=== PATIENT | male | born 1950 ===

== ENCOUNTER 2022-07-31 10:57 | Outpatient (REF) | payer OTHER, SELFPAY ==
[2022-07-31 11:05] LABS: MANUAL DIFF FLAG NO
[2022-07-31 11:17] LABS: Basophils Absolute Auto 0.1 X10*3/uL (0.0-0.2); Basophils Percent Auto 0.8 % (0-2); Eosinophils Absolute Auto 0.2 X10*3/uL (0.0-0.4); Eosinophils Percent Auto 1.8 % (0-4); Hematocrit 39.9 % (42.0-52.0); Hemoglobin 13.5 g/dl (14.0-18.0); Imm Gran Abs Auto 0.03 X10*3/uL (0.00-0.03); Imm Gran Pct Auto 0.4 % (0.0-0.4); Lymphocytes Absolute Auto 2.3 X10*3/uL (1.2-4.9); Mean Corpuscular HGB Conc 33.8 g/dl (31.0-36.0); Mean Corpuscular Hemoglobin 32.7 pg (27.0-33.0); Mean Corpuscular Volume 96.6 fL (80.0-98.0); Mean Platelet Volume 9.7 fL (9.4-12.4); Monocytes Absolute Auto 0.7 X10*3/uL (0.1-1.2); Monocytes Percent Auto 8.9 % (2-11); Neutrophils Absolute Auto 5.1 x10*3/uL (2.0-8.3); Neutrophils Percent Auto 61.1 % (45-73); Platelet Count 201 X10*3/uL (160-400); Red Blood Count 4.13 X10*6/uL (4.60-5.80); Red Cell Distribution Width 13.2 % (11.0-16.0); White Blood Count 8.3 X10*3/uL (4.8-10.8)
[2022-07-31 11:22] LABS: Appearance Urine Clear; Color Urine Yellow; Glucose Urine UA Negative (Negative); Leukocyte Esterase Urine Negative (Negative); Nitrite Urine Negative (Negative); Urine Blood Negative (Negative); Urine Ketones Negative (Negative); Urine Protein Negative (Neg-Trace)
[2022-07-31 11:24] LABS: Bacteria Urine None Seen (None Seen); Hyaline Casts Urine 0-2 /LPF (0-2); RBC Urine 0-2 /HPF (0-2); Squamous Epithelial Cell Urine 0-2 /HPF (0-2); WBC Urine 0-5 /HPF (0-5)
[2022-07-31 11:32] LABS: Alanine Aminotransferase 34 U/L (0-40); Albumin Level 4.2 g/dL (3.5-5.0); Alkaline Phosphatase 68 U/L (39-117); Anion Gap 16 (12-20); Aspartate Amino Transferase 31 U/L (5-37); Bilirubin Total 0.7 mg/dL (0.0-1.0); Blood Urea Nitrogen 19 mg/dL (9-16); Calcium 9.4 mg/dL (8.4-10.2); Carbon Dioxide 25 mmol/L (22-29); Chloride 100 mmol/L (96-108); Cholesterol 159 mg/dL; Estimated Glomerular Filt Rate > 60; Glucose Fasting 100 mg/dL (60-99); HDL Cholesterol 65 mg/dL; LDL Cholesterol Calculated 69 mg/dl; Sodium 137 mmol/L (135-145); Total Protein 7.3 g/dL (6.5-8.0); Triglycerides 128 mg/dL
[2022-07-31 11:52] LABS: PSA,Total (Free>4and<10) 2.45 ng/mL (0.00-4.00)
== END 2022-07-31 10:58 | disposition home or self-care (01) ==
LOC: HO.LNP 10:57
PROVIDERS: Visit Provider Internal Medicine
DX: Z00.00 Encounter for general adult medical examination without abnormal findings (principal); Z12.5 Encounter for screening for malignant neoplasm of prostate; E78.00 Pure hypercholesterolemia, unspecified; I10 Essential (primary) hypertension
CPT/HCPCS: 80053; 80061; 81001; 84153; 85025

== ENCOUNTER 2022-11-11 12:20 | Outpatient (REF) | payer OTHER, SELFPAY ==
[2022-11-11 12:22] LABS: MANUAL DIFF FLAG NO
[2022-11-11 13:00] LABS: Basophils Absolute Auto 0.1 X10*3/uL (0.0-0.2); Basophils Percent Auto 0.7 % (0-2); Eosinophils Absolute Auto 0.2 X10*3/uL (0.0-0.4); Eosinophils Percent Auto 2.1 % (0-4); Hematocrit 40.7 % (42.0-52.0); Hemoglobin 14.2 g/dl (14.0-18.0); Imm Gran Abs Auto 0.02 X10*3/uL (0.00-0.03); Imm Gran Pct Auto 0.3 % (0.0-0.4); Lymphocytes Absolute Auto 2.1 X10*3/uL (1.2-4.9); Lymphocytes Percent Auto 28.8 % (20-40); Mean Corpuscular HGB Conc 34.9 g/dl (31.0-36.0); Mean Corpuscular Hemoglobin 33.3 pg (27.0-33.0); Mean Corpuscular Volume 95.5 fL (80.0-98.0); Mean Platelet Volume 9.8 fL (9.4-12.4); Monocytes Absolute Auto 0.9 X10*3/uL (0.1-1.2); Monocytes Percent Auto 11.9 % (2-11); Neutrophils Absolute Auto 4.1 x10*3/uL (2.0-8.3); Neutrophils Percent Auto 56.2 % (45-73); Platelet Count 179 X10*3/uL (160-400); Red Blood Count 4.26 X10*6/uL (4.60-5.80); White Blood Count 7.2 X10*3/uL (4.8-10.8)
[2022-11-11 13:50] LABS: Iron 111 mcg/dL (45-160); Percent Iron Saturation 40 % (15-50); Total Iron Binding Capacity 276 mcg/dL (228-428); Unsaturated Iron Binding 165 ug/dL
== END 2022-11-11 12:21 | disposition home or self-care (01) ==
LOC: HO.LNP 12:20
PROVIDERS: Visit Provider Internal Medicine
DX: D64.9 Anemia, unspecified (principal)
CPT/HCPCS: 83540; 85025

== ENCOUNTER 2023-01-30 10:59 | Outpatient (REF) | payer OTHER, SELFPAY ==
[2023-01-30 11:49] LABS: Alanine Aminotransferase 62 U/L (0-40); Albumin Level 3.8 g/dL (3.5-5.0); Alkaline Phosphatase 72 U/L (39-117); Aspartate Amino Transferase 64 U/L (5-37); Bilirubin Direct 0.2 mg/dL (0.0-0.5); Bilirubin Total 0.6 mg/dL (0.0-1.0); Cholesterol 162 mg/dL; HDL Cholesterol 75 mg/dL; LDL Cholesterol Calculated 68 mg/dl; Total Protein 6.9 g/dL (6.5-8.0); Triglycerides 97 mg/dL
[2023-01-30 14:39] LABS: Reflex LDLD? No
== END 2023-01-30 11:00 | disposition home or self-care (01) ==
LOC: HO.LNP 10:59
PROVIDERS: PCP Internal Medicine; Visit Provider Internal Medicine
DX: E78.00 Pure hypercholesterolemia, unspecified (principal)
CPT/HCPCS: 80061; 80076

== ENCOUNTER 2023-04-07 10:35 | Outpatient (REF) | payer OTHER, SELFPAY ==
[2023-04-07 11:16] LABS: Alanine Aminotransferase 29 U/L (0-40); Alkaline Phosphatase 63 U/L (39-117); Aspartate Amino Transferase 29 U/L (5-37); Bilirubin Direct 0.3 mg/dL (0.0-0.5); Total Protein 7.4 g/dL (6.5-8.0)
== END 2023-04-07 10:36 | disposition home or self-care (01) ==
LOC: HO.LNP 10:35
PROVIDERS: Visit Provider Internal Medicine
DX: R79.89 Other specified abnormal findings of blood chemistry (principal)
CPT/HCPCS: 80076

== ENCOUNTER 2023-08-27 10:34 | Outpatient (REF) | payer OTHER, SELFPAY ==
[2023-08-27 10:36] LABS: MANUAL DIFF FLAG NO
[2023-08-27 10:43] LABS: Basophils Absolute Auto 0.1 X10*3/uL (0.0-0.2); Basophils Percent Auto 0.7 % (0-2); Eosinophils Absolute Auto 0.1 X10*3/uL (0.0-0.4); Hematocrit 44.5 % (42.0-52.0); Imm Gran Abs Auto 0.05 X10*3/uL (0.00-0.03); Imm Gran Pct Auto 0.6 % (0.0-0.4); Lymphocytes Absolute Auto 2.5 X10*3/uL (1.2-4.9); Mean Corpuscular HGB Conc 33.7 g/dl (31.0-36.0); Mean Corpuscular Hemoglobin 33.3 pg (27.0-33.0); Mean Corpuscular Volume 98.9 fL (80.0-98.0); Mean Platelet Volume 9.8 fL (9.4-12.4); Monocytes Absolute Auto 0.9 X10*3/uL (0.1-1.2); Monocytes Percent Auto 10.7 % (2-11); Neutrophils Absolute Auto 4.7 x10*3/uL (2.0-8.3); Platelet Count 194 X10*3/uL (160-400); White Blood Count 8.3 X10*3/uL (4.8-10.8)
[2023-08-27 10:49] LABS: Appearance Urine Clear; Color Urine Yellow; Glucose Urine UA Negative (Negative); Leukocyte Esterase Urine Negative (Negative); Nitrite Urine Negative (Negative); Specific Gravity - Urine 1.015 (1.005-1.025); Urine Blood Negative (Negative); Urine Ketones Negative (Negative); Urine Protein Trace mg/dL (Neg-Trace)
[2023-08-27 10:54] LABS: Bacteria Urine None Seen (None Seen); Hyaline Casts Urine 0-2 /LPF (0-2); Squamous Epithelial Cell Urine 0-2 /HPF (0-2); WBC Urine 0-5 /HPF (0-5)
[2023-08-27 10:56] LABS: Alanine Aminotransferase 65 U/L (0-40); Albumin Level 4.1 g/dL (3.5-5.0); Alkaline Phosphatase 57 U/L (39-117); Anion Gap 11 (12-20); Aspartate Amino Transferase 38 U/L (5-37); Bilirubin Total 0.8 mg/dL (0.0-1.0); Blood Urea Nitrogen 25 mg/dL (9-16); Calcium 9.7 mg/dL (8.4-10.2); Carbon Dioxide 30 mmol/L (22-29); Chloride 101 mmol/L (96-108); Cholesterol 230 mg/dL (<200); Estimated Glomerular Filt Rate 57; Glucose Fasting 93 mg/dL (60-99); HDL Cholesterol 79 mg/dL (>40); LDL Cholesterol Calculated 129 mg/dL (<100); Potassium 4.3 mmol/L (3.3-5.1); Sodium 138 mmol/L (135-145); Total Protein 6.6 g/dL (6.5-8.0); Triglycerides 112 mg/dL (<150)
[2023-08-28 12:35] LABS: Free Prostate Spec Ag 0.7 ng/mL; Percent Free Prostate Spec Ag 17 % (calc) (>25); Prostate Specific Ag Total 4.2 ng/mL (< OR = 4.0)
== END 2023-08-27 10:35 | disposition home or self-care (01) ==
LOC: HO.LNP 10:34
PROVIDERS: PCP Internal Medicine; Visit Provider Internal Medicine
DX: Z00.00 Encounter for general adult medical examination without abnormal findings (principal); Z12.5 Encounter for screening for malignant neoplasm of prostate; I10 Essential (primary) hypertension
CPT/HCPCS: 80053; 80061; 81001; 84153; 84154; 85025

== ENCOUNTER 2023-10-20 15:27 | Outpatient (REF) | payer OTHER, SELFPAY ==
[2023-10-20 15:45] LABS: Appearance Urine Clear; Color Urine Yellow; Glucose Urine UA Negative (Negative); Leukocyte Esterase Urine Negative (Negative); Nitrite Urine Negative (Negative); PH 7.5 (5.0-9.0); Specific Gravity - Urine 1.015 (1.005-1.025); Urine Blood Negative (Negative); Urine Ketones Negative (Negative); Urine Protein Trace mg/dL (Neg-Trace)
[2023-10-20 16:39] LABS: Bacteria Urine None Seen (None Seen); Hyaline Casts Urine 0-2 /LPF (0-2); RBC Urine 0-2 /HPF (0-2); Squamous Epithelial Cell Urine 0-2 /HPF (0-2); WBC Urine 0-5 /HPF (0-5)
== END 2023-10-20 15:28 | disposition home or self-care (01) ==
LOC: HO.LNP 15:27
PROVIDERS: Visit Provider Internal Medicine
DX: R31.29 Other microscopic hematuria (principal)
CPT/HCPCS: 81001

== ENCOUNTER 2024-05-10 11:28 | Outpatient (REF) | payer OTHER, SELFPAY ==
[2024-05-10 12:42] LABS: Alanine Aminotransferase 43 U/L (0-40); Albumin Level 4.2 g/dL (3.5-5.0); Alkaline Phosphatase 63 U/L (39-117); Aspartate Amino Transferase 39 U/L (5-37); Bilirubin Direct 0.3 mg/dL (0.0-0.5); Bilirubin Total 0.7 mg/dL (0.0-1.0); Cholesterol 140 mg/dL (<200); HDL Cholesterol 64 mg/dL (>40); LDL Cholesterol Calculated 49 mg/dL (<100); Total Protein 7.8 g/dL (6.5-8.0); Triglycerides 135 mg/dL (<150)
[2024-05-10 12:47] LABS: PSA,Total (Free>4and<10) 5.34 ng/mL (0.00-4.00)
[2024-05-10 13:03] LABS: Reflex LDLD? No
[2024-05-13 08:38] LABS: Percent Free Prostate Spec Ag 20 % (calc) (>25)
== END 2024-05-10 11:29 | disposition home or self-care (01) ==
LOC: HO.LNP 11:28
PROVIDERS: Visit Provider Internal Medicine
DX: E78.00 Pure hypercholesterolemia, unspecified (principal); R97.20 Elevated prostate specific antigen [PSA]; Z12.5 Encounter for screening for malignant neoplasm of prostate
CPT/HCPCS: 80061; 80076; 84153; 84154

== ENCOUNTER 2024-09-13 14:35 | Outpatient (AMB) | payer MEDICARE, OTHER, SELFPAY ==
[2024-09-13 15:18] VITALS: BP 116/78; PULSE 68; TEMP 36.5; O2SAT 96
--- NOTE | 2024-09-13 15:18 | AM.OFFWIN_ITS ---
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 Reporting symptoms of sinus congestion, sore throat and difficulty swallowing. Low-grade fever. No family member is sick. No recent travel. Patient reports symptoms of malaise and fatigue. PFSH Social History Patient Tobacco Use Status: Never used Tobacco Physical Exam Vital Signs: Last Vital Signs Temp 97.7 F 09/13/24 15:18 Pulse 68 09/13/24 15:18 BP 116/78 09/13/24 15:18 Pulse Ox 96 09/13/24 15:18 Oxygen Delivery Method Room Air 09/13/24 15:18 Const General: cooperative and healthy appearing Nutritional Appearance: well nourished Orientation/consciousness: patient oriented x3 Limitations: no limitations HEENT Head: Yes normal to inspection Eyes General: appearance normal, both eyes and all related structures Neck Neck: Yes normal visual inspection Chest Chest palpation & inspection: normal palpation of entire chest wall Resp Effort & Inspection: normal respiratory effort Neuro General: patient oriented x3 Assessment & Plan Assessment & Plan (1) Upper respiratory tract infection: Code(s): J06.9 - Acute upper respiratory infection, unspecified Plan: Antibiotics ordered. Increase fluid intake. Tylenol for aches and pains. If symptoms worsen, follow-up here for a recheck. Coding Level of Care Code Est Pt Level 3 (52030) Diagnoses Upper respiratory tract infection J06.9
== END 2024-09-13 15:54 | disposition home or self-care (01) ==
PROVIDERS: PCP Internal Medicine; Visit Provider Internal Medicine
DX: J06.9 Acute upper respiratory infection, unspecified (principal)

== ENCOUNTER → 2024-09-13 14:35 | Outpatient (BNVA) | payer MEDICARE, OTHER, SELFPAY | PROVIDERS: PCP Internal Medicine; Visit Provider Internal Medicine | DX: J06.9 Acute upper respiratory infection, unspecified (principal) | CPT/HCPCS: 99212 ==

== ENCOUNTER 2024-10-18 07:30 | Outpatient (REF) | payer MEDICARE, OTHER, SELFPAY ==
[2024-10-18 10:41] LABS: MANUAL DIFF FLAG NO
[2024-10-18 11:02] LABS: Basophils Absolute Auto 0.1 X10*3/uL (0.0-0.2); Basophils Percent Auto 0.9 % (0-2); Eosinophils Absolute Auto 0.1 X10*3/uL (0.0-0.4); Eosinophils Percent Auto 1.4 % (0-4); Hematocrit 38.8 % (42.0-52.0); Hemoglobin 12.9 g/dl (14.0-18.0); Imm Gran Abs Auto 0.05 X10*3/uL (0.00-0.03); Imm Gran Pct Auto 0.5 % (0.0-0.4); Lymphocytes Absolute Auto 1.6 X10*3/uL (1.2-4.9); Lymphocytes Percent Auto 16.7 % (20-40); Mean Corpuscular HGB Conc 33.2 g/dl (31.0-36.0); Mean Corpuscular Hemoglobin 32.2 pg (27.0-33.0); Mean Corpuscular Volume 96.8 fL (80.0-98.0); Mean Platelet Volume 9.6 fL (9.4-12.4); Monocytes Absolute Auto 0.9 X10*3/uL (0.1-1.2); Monocytes Percent Auto 9.1 % (2-11); Neutrophils Absolute Auto 6.9 x10*3/uL (2.0-8.3); Neutrophils Percent Auto 71.4 % (45-73); Platelet Count 322 X10*3/uL (160-400); Red Blood Count 4.01 X10*6/uL (4.60-5.80); Red Cell Distribution Width 12.3 % (11.0-16.0); White Blood Count 9.6 X10*3/uL (4.8-10.8)
[2024-10-18 11:17] LABS: Appearance Urine Clear; Color Urine Yellow; Glucose Urine UA Negative (Negative); Leukocyte Esterase Urine Trace (Negative); Nitrite Urine Negative (Negative); PH 7.5 (5.0-9.0); UMIC TRIGGER UACC YES; Urine Blood Negative (Negative); Urine Ketones Negative (Negative); Urine Protein Negative (Neg-Trace)
[2024-10-18 11:21] LABS: Bacteria Urine None Seen (None Seen); Hyaline Casts Urine 0-2 /LPF (0-2); RBC Urine 0-2 /HPF (0-2); Squamous Epithelial Cell Urine 0-2 /HPF (0-2); WBC Urine 0-5 /HPF (0-5)
[2024-10-18 11:38] LABS: Alanine Aminotransferase 26 U/L (0-40); Albumin Level 3.8 g/dL (3.5-5.0); Alkaline Phosphatase 62 U/L (39-117); Anion Gap 13 (12-20); Aspartate Amino Transferase 39 U/L (5-37); Bilirubin Total 0.5 mg/dL (0.0-1.0); Blood Urea Nitrogen 15 mg/dL (9-16); Calcium 9.5 mg/dL (8.4-10.2); Carbon Dioxide 26 mmol/L (22-29); Chloride 102 mmol/L (96-108); Cholesterol 118 mg/dL (<200); Estimated Glomerular Filt Rate > 60; Glucose Fasting 97 mg/dL (60-99); HDL Cholesterol 54 mg/dL (>40); LDL Cholesterol Calculated 47 mg/dL (<100); PSA,Total (Free>4and<10) 6.76 ng/mL (0.00-4.00); Potassium 4.4 mmol/L (3.3-5.1); Sodium 137 mmol/L (135-145); Total Protein 7.8 g/dL (6.5-8.0); Triglycerides 85 mg/dL (<150)
--- OUTSIDE RECORDS SUMMARY | 2024-10-18 12:01 | XMS_ITS | Clinical Summary ---
Author Organization [address] [place] [address] Address [address] [place] [address] Phone Care Team Providers Care Butadiene Compressor Operator Name Role Phone Easton Barclay MD Primary Care Provider Unav ailable Allergies No known active allergies Medications Medication Sig Dispensed Refills Start Date End Date Status vitamin B complex (VITAMINS B COMPLEX ORAL) Take by mouth. Active apixaban (Eliquis) 5 mg tablet Take 1 tablet (5 mg total) by mouth 2 (two) times a day. 05/13/2024 Active amLODIPine (NORVASC) 10 mg tablet Take 1 tablet (10 mg total) by mouth 1 (one) time each day. Active folic acid (FOLVITE) 1 mg tablet Take 1 tablet (1,000 mcg total) by mouth 1 (one) time each day. Active torsemide (DEMADEX) 10 mg tablet Take 1 tablet (10 mg total) by mouth. Active CALCIUM CITRATE ORAL Take by mouth. Active multivitamin (MULTIPLE VITAMINS ORAL) Take by mouth. Active cholecalciferol, vitamin D3, (CHOLECALCIFEROL, VIT D3,,BULK, MISC) Take 4,000 Units by mouth. Active ezetimibe (ZETIA) 10 mg tablet Take 1 tablet (10 mg total) by mouth. Active metoprolol succinate (TOPROL-XL) 200 mg 24 hr tablet Take 1 tablet (200 mg total) by mouth. Active omeprazole OTC (PriLOSEC OTC) 20 mg EC tablet Take 1 tablet (20 mg total) by mouth. Active rosuvastatin (CRESTOR) 10 mg tablet Take 1 tablet (10 mg total) by mouth. Active valsartan (DIOVAN) 320 mg tablet Take 1 tablet (320 mg total) by mouth. Active Active Problems Problem Noted Date Diagnosed Date Paroxysmal atrial fibrillation 06/04/2023 Overview (07/12/2024): Last Assessment & Plan: Patient denies perceived recurrence of arrhythmias, palpitations, syncope, presyncope, fatigue, or lightheadedness. Patient not historically put on anticoagulation given low A-fib burden on his device, alcohol use, episodes of syncope, and falls. - Repeat ECHO to assess for structural abnormalities or valvular disease - Will continue to monitor device checks for arrhythmias Venous insufficiency 02/17/2022 S/p TAVR (transcatheter aort ic valve replacement), bioprosthetic 02/17/2022 Overview (07/12/2024): Last Assessment & Plan: - discussed cardiac rehab as an option to improve physical activity capacity and the benefits of the program on his heart function. Patient is open to this and will look into it. 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 - Continue metoprolol and amlodipine - Encouraged to follow low-salt low-fat diet, make purposeful strides towards weight loss, and engage in routine aerobic exercise as tolerated. Hyperlipidemia 01/22/2021 Aortic stenosis 01/22/2021 Overview (07/12/2024): moderate to severe Encounters Date Type Department Care Team Description 10/04/2024 6:30 PM EST Ancillary Procedure [facility] - [address] [place] [address] 08/09/2024 10:05 AM EST Ancillary Procedure [facility] - [address] [place] [address] 08/09/2024 Telephone [facility] - [address] [place] [address] Felicita Trinidad PA 08/01/2024 10:00 AM EST Ancillary Procedure [facility] - [address] [place] [address] Encounter for adjustment or management of cardiac device from Last 3 Months Surgical History Surgery Date Site/Laterality Comments AORTIC VALVE REPLACEMENT INSERT / REPLACE / REMOVE PACEMAKER Medical History Medical History Date Comments Atrial fibrillation (CMS/HCC) Heart valve disease Hypertension Heart block Alcohol abuse with physiological dependence (CMS /HCC) LVH (left ventricular hypertrophy) Social History Tobacco Use Types Packs/Day Years Used Date Smoking Tobacco: Never Smokeless Tobacco: Never Tobacco Cessation:Counseling Given: Not Answered Alcohol Use Standard Drinks/Week Comments Yes 0 (1 standard drink = 0.6 oz pur e alcohol) Sex and Gender Information Value Date Recorded Sex Assigned at Not on file Gender Identity Not on file Sexual Orientation Not on file Job Start Date Occupation Industry Not on file Not on file Not on file Obstetrics History Last Filed Vital Signs Vital Sign Reading Time Taken Comments Blood Pressure 110/64 06/07/2024 1:59 PM EDT Sit ting L Arm Pulse 76 06/07/2024 1:59 PM EDT Temperature - - Respiratory Rate - - Oxygen Saturation - - Inhaled Oxygen Concentration - - Weight 116 kg (256 lb) 06/07/2024 1:59 PM EDT Height 182.9 cm (6') 06/07/2024 1:59 PM EDT Body Mass Index 34.72 06/07/2024 1:59 PM EDT Plan of Treatment Upcoming Encounters Date Type Department Care Team (Late st Contact Info) Description 06/14/2025 9:00 AM EDT Ancillary Procedure [facility] - [address] [place] [address] Health Maintenance Due Date Last Done Comments DTaP,Tdap,and Td Vaccines (1 - Tdap) 01/13/1967 Zoster Vaccines (1 of 2) 01/13/1998 Cholesterol Screening (Lipid Panel) 09/06/2022 Depression Screening 09/06/2022 Falls Risk Assessment 09/06/2022 Hepatitis C Screening 09/06/2022 Medicare Annual Wellness Visit 09/06/2022 Social Influencers of Health Screening 09/06/2022 Hypertension/CHF/CAD Annual BMP Blood Test 09/07/2022 07/30/2021 RSV Immunization Patients 60+ Years Old (1 - 1-dose 75+ series) 01/13/2023 COVID-19 Vaccine (3 - season) 2024 01/09/2021, 12/12/2020 Influenza Vaccine (#1) 2024 , 08/12/2018, 10/19/2017, Additional history exists Pneumococcal Vaccine: 65+ Years Completed 05/12/2023 HIB Vaccines Aged Out No longer eligi ble based on patient's age to complete this topic HPV Vaccines Aged Out No longer eligi ble based on patient's age to complete this topic Hepatitis A Vaccines Aged Out No long er eligible based on patient's age to complete this topic Hepatitis B Vaccines Aged Out No long er eligible based on patient's age to complete this topic IPV Vaccines Aged Out No longer eligi ble based on patient's age to complete this topic MMR Vaccines Aged Out No longer eligi ble based on patient's age to complete this topic Meningococcal ACWY Vaccine Aged Out N o longer eligible based on patient's age to complete this topic RSV Immunization Patients Under 20 months Aged Out No longer eligible based on patient's age to complete this topic Varicella Vaccines Aged Out No longer eligible based on patient's age to complete this topic Medical Devices Implanted Type Area Paint Supervisor Device Identifier Shelf Expiration Date Model / Serial / Lot Cardiac Pacemaker-03/18 Implanted:02/27 by Nicole Zarate MD (Quantity not on file) Cardiac Pacemaker Left: Chest [employer] - CARDIAC RHYTH-CRDM / [id number] / Medt-Card [place] Xt Mri [id number] Implanted:02/27 (Quantity not on file) Cardiac Pacemaker [employer] - CARDIAC RHYTH-CRDM MADDIE XT DR ZHU [id number] / [id number] / Medt-Card Maddie Xt Dr Zhu [id number] Implanted:02/27 (Quantity not on file) Cardiac Pacemaker [employer] - CARDIAC RHYTH-CRDM MADDIE ZHU / [id number] / Procedures Procedure Name Priority Date/Time Associated Diagnosis Comments CARDIAC DEVICE CHECK- REMOTE- MURJ Routine 10/04/2024 6:27 PM EST CARDIAC DEVICE CHECK- REMOTE- MURJ Routine 08/09/2024 10:02 AM EST CARDIAC DEVICE CHECK- IN CLINIC- MURJ Routine 08/01/2024 12:14 PM EST Encounter for adjustment or management of cardiac device ANNUAL BMP BLOOD TEST Routine 07/30/2021 from Last 3 Months or Most Recently Relevant to Health Maintenance Results * Cardiac device check - Remote- MURJ (10/04/2024 6:27 PM EST) Only the most recent of2 resultswithin the time period is included. Date Time Interrogation Session CV DEVICE CHECK Type Interrogation Session Remote CV DEVICE CHECK Implantable Pulse Generator Paint Supervisor MDT CV DEVICE CHECK Implantable Pulse Generator Type IPG CV DEVICE CHECK Implantable Pulse Generator Model Maddie XT DR ZHU [id number] CV DEVICE CHECK Implantable Pulse Generator Serial Number [id number] CV DEVICE CHECK Implantable Pulse Generator Implant Date 20210318 CV DEVICE CHECK Battery Remaining Longevity 112.0 CV DEVICE CHECK Battery Voltage 3.010 CV D EVICE CHECK Battery SECURITY CONTROL ROOM OFFICER Trigger 2.625 CV DEVICE CHECK Battery Status Middle of Service CV DEVICE CHECK Dipak Statistic RA Percent Paced 19.69 CV DEVICE CHECK Dipak Statistic RV Percent Paced 88.10 CV DEVICE CHECK Atrial Tachy Statistic AT/AF Kiron Percent 1.70 CV DEVICE CHECK Lead Channel Sensing Intrinsic Amplitude 0.375 CV DEVICE CHECK Lead Channel Setting Sensing Sensitivity 0.30 CV DEVICE CHECK Lead Channel Impedance Value 361 CV DEVICE CHECK Lead Channel Pacing Threshold Amplitude 0.500 CV DEVICE CHECK Lead Channel Pacing Threshold Pulse Width 0.4 CV DEVICE CHECK Lead Channel RA Pacing Threshold Date 2024-09-15 CV DEVICE CHECK Lead Channel Setting Pacing Amplitude 1.500 CV DEVICE CHECK Lead Channel Setting Pacing Pulse Width 0.4 CV DEVICE CHECK Lead Channel Sensing Intrinsic Amplitude 17.625 CV DEVICE CHECK Lead Channel Setting Sensing Sensitivity 0.90 CV DEVICE CHECK Lead Channel Impedance Value 456 CV DEVICE CHECK Lead Channel Pacing Threshold Amplitude 1.000 CV DEVICE CHECK Lead Channel Pacing Threshold Pulse Width 0.4 CV DEVICE CHECK Lead Channel RV Pacing Threshold Date 2024-09-16 CV DEVICE CHECK Lead Channel Setting Pacing Amplitude 2.000 CV DEVICE CHECK Lead Channel Setting Pacing Pulse Width 0.4 CV DEVICE CHECK Dipak Setting Mode (NBG Code) AAI<=>DDD CV DEVICE CHECK Dipak Setting Lower Rate Limit 60 CV DEVICE CHECK Dipak Setting AT Mode Switch Rate 162 CV DEVICE CHECK Dipak Setting Maximum Tracking Rate 130 CV DEVICE CHECK Dipak Setting Maximum Sensor Rate 130 CV DEVICE CHECK Dipak Setting PAV Delay 180 CV DEVICE CHECK Dipak Setting FRANCHESCA Delay 150 CV DEVICE CHECK Zone Setting Type Category AT/AF CV DEVICE CHECK Rate 162 CV DEVICE CHECK Therapies Some Rx Off CV DEVIC E CHECK Zone Setting Status Monitor CV DEVICE CHECK Zone ID 2 CV DEVICE CHECK Zone Setting Type Category VT CV DEVICE CHECK Rate 140 CV DEVICE CHECK Zone Setting Status ENABLED CV DEVICE CHECK Zone ID 6 CV DEVICE CHECK Date of Service 2024-09-26 CV DEVICE CHECK Anatomical Region Laterality Modality Device Interroga tion 09/16/2024 4:05 AM EST Impressions 10/04/2024 11:54 AM EST Normal Remote: With Events * Normal Device Function * Events or Alerts: 65 *Brief AFL/ RVR * Battery: OK, 9.33 yrs * Sensing, impedance and thresholds reviewed * Programmed parameters reviewed * Presenting rhythm reviewed * Heart Rate Histograms reviewed Narrative Procedure Note Felicita Trinidad PA - 10/04/2024 IMPRESSION: Normal Remote: With Events * Normal Device Function * Events or Alerts: 65 *Brief AFL/ RVR * Battery: OK, 9.33 yrs * Sensing, impedance and thresholds reviewed * Programmed parameters reviewed * Presenting rhythm reviewed * Heart Rate Histograms reviewed Felicita MANZO CV IMPLANTABLE CARDI AC DEVICE PROCEDURES * CARDIAC DEVICE CHECK- IN CLINIC- [facility] (08/01/2024 12:14 PM EST) Date Time Interrogation Session [id number] CV DEVICE CHECK Implantable Pulse Generator Paint Supervisor MDT CV DEVICE CHECK Implantable Pulse Generator Type IPG CV DEVICE CHECK Implantable Pulse Generator Model [place] XT DR MRI CV DEVICE CHECK Implantable Pulse Generator Serial Number [id number] CV DEVICE CHECK Implantable Pulse Generator Implant Date 20210318 CV DEVICE CHECK Battery Status Unknown CV DE VICE CHECK Dipak Statistic RA Percent Paced 18.00 CV DEVICE CHECK Dipak Statistic RV Percent Paced 81.50 CV DEVICE CHECK Atrial Tachy Statistic AT/AF Kiron Percent 0.10 CV DEVICE CHECK Lead Channel Sensing Intrinsic Amplitude 1.300 CV DEVICE CHECK Lead Channel Setting Sensing Sensitivity 0.30 CV DEVICE CHECK Lead Channel Impedance Value 342 CV DEVICE CHECK Lead Channel Pacing Threshold Amplitude 0.630 CV DEVICE CHECK Lead Channel Pacing Threshold Pulse Width 0.4 CV DEVICE CHECK Lead Channel RA Pacing Threshold Date 2024-08-01 CV DEVICE CHECK Lead Channel Setting Pacing Amplitude 1.500 CV DEVICE CHECK Lead Channel Setting Pacing Pulse Width 0.4 CV DEVICE CHECK Lead Channel Sensing Intrinsic Amplitude 14.400 CV DEVICE CHECK Lead Channel Setting Sensing Sensitivity 0.90 CV DEVICE CHECK Lead Channel Impedance Value 437 CV DEVICE CHECK Lead Channel Pacing Threshold Amplitude 1.000 CV DEVICE CHECK Lead Channel Pacing Threshold Pulse Width 0.4 CV DEVICE CHECK Lead Channel RV Pacing Threshold Date 2024-08-02 CV DEVICE CHECK Lead Channel Setting Pacing Amplitude 2.000 CV DEVICE CHECK Lead Channel Setting Pacing Pulse Width 0.4 CV DEVICE CHECK Dipak Setting Mode (NBG Code) AAIR<=>DDDR CV DEVICE CHECK Dipak Setting Lower Rate Limit 60 CV DEVICE CHECK Dipak Setting AT Mode Switch Rate 162 CV DEVICE CHECK Dipak Setting Maximum Tracking Rate 130 CV DEVICE CHECK Dipak Setting Maximum Sensor Rate 130 CV DEVICE CHECK Zone Setting Type Category AT/AF CV DEVICE CHECK Therapies All Rx Off CV DEVICE CHECK Zone Setting Status Monitor CV DEVICE CHECK Zone ID 2 CV DEVICE CHECK Zone Setting Type Category VT CV DEVICE CHECK Zone Setting Status Monitor CV DEVICE CHECK Zone ID 5 CV DEVICE CHECK Date of Service 2025-06-14 CV DEVICE CHECK Anatomical Region Laterality Modality Device Interroga tion 08/01/2024 Impressions 08/09/2024 7:36 AM EST Device Reprogrammed Device reprogrammed, changes are listed below: * Patient presented to the office stating he wanted to be put back to the settings he was at yesterday before changes were made, he has been feeling his heart race and palpitations ever since. * Presenting rhythm was AP-BEER RUNNER 98 bpm * PVARP changed back to 240ms *PVAB changed back to 240ms *A. Blank post AP changed back to 200ms *PVAB method changed back to Partial+ * Patient understands that this may not give the most accurate AF burden but he wishes to remain at these setting going forward. Narrative Procedure Note Nicole Zarate MD - 08/10/2024 IMPRESSION: Device Reprogrammed Device reprogrammed, changes are listed below: * Patient presented to the office stating he wanted to be put back to thesettings he was at yesterday before changes were made, he has been feelinghis heart race and palpitations ever since. * Presenting rhythm was AP-BEER RUNNER 98 bpm * PVARP changed back to 240ms *PVAB changed back to 240ms *A. Blank post AP changed back to 200ms *PVAB method changed back to Partial+ * Patient understands that this may not give the most accurate AF burdenbut he wishes to remain at these setting going forward. Order Referral Cardiovascular CV IMPLANT ABLE CARDIAC DEVICE PROCEDURES * Annual BMP Blood Test (07/30/2021) Pathologist [facility] Annual BMP Blood Test abstracted Historical Provider MD GRIS Garcia from Last 3 Months or Most Recently Relevant to Health Maintenance Care Teams Butadiene Compressor Operator Relationship Specialty Start Date End Date Easton Barclay MD [address] [place] [address] PCP - General Internal Medicine 07/15/22
--- OUTSIDE RECORDS SUMMARY | 2024-10-18 12:01 | XMS_ITS | Encounter Summary ---
Author Organization [facility] Address [address] [place] [address] Care Team Providers Care Pipe Wrapping Machine Operator Name Role Phone Easton Barclay MD Primary Care Provider Unav ailable Encounter Details Date Type Department Care Team (Late st Contact Info) Description 10/04/2024 6:30 PM EST Ancillary Procedure [facility] [address] [facility] [address] [place] [address] Social History Tobacco Use Types Packs/Day Years Used Date Smoking Tobacco: Never Smokeless Tobacco: Never Alcohol Use Standard Drinks/Week Comments Yes 0 (1 standard drink = 0.6 oz pur e alcohol) Sex and Gender Information Value Date Recorded Sex Assigned at Not on file Gender Identity Not on file Sexual Orientation Not on file Job Start Date Occupation Industry Not on file Not on file Not on file documented as of this encounter Plan of Treatment Upcoming Encounters Date Type Department Care Team (Late st Contact Info) Description 06/14/2025 9:00 AM EDT Ancillary Procedure [facility] [address] [facility] [address] [place] [address] documented as of this encounter Procedures Procedure Name Priority Date/Time Associated Diagnosis Comments CARDIAC DEVICE CHECK- REMOTE- MURJ Routine 10/04/2024 6:27 PM EST documented in this encounter Results * Cardiac device check - Remote- MURJ (10/04/2024 6:27 PM EST) Date Time Interrogation Session [id number] CV DEVICE CHECK Type Interrogation Session Remote CV DEVICE CHECK Implantable Pulse Generator Sales Agent MDT CV DEVICE CHECK Implantable Pulse Generator Type IPG CV DEVICE CHECK Implantable Pulse Generator Model [place] XT DR MRI [id number] CV DEVICE CHECK Implantable Pulse Generator Serial Number [id number] CV DEVICE CHECK Implantable Pulse Generator Implant Date 20210318 CV DEVICE CHECK Battery Remaining Longevity 112.0 CV DEVICE CHECK Battery Voltage 3.010 CV D EVICE CHECK Battery CART DRIVER Trigger 2.625 CV DEVICE CHECK Battery Status Middle of Service CV DEVICE CHECK Dipak Statistic RA Percent Paced 19.69 CV DEVICE CHECK Dipak Statistic RV Percent Paced 88.10 CV DEVICE CHECK Atrial Tachy Statistic AT/AF [place] Percent 1.70 CV DEVICE CHECK Lead Channel [...] MANZO CV IMPLANTABLE CARDI AC DEVICE PROCEDURES documented in this encounter Visit Diagnoses Not on filedocumented in this encounter Care Teams Pipe Wrapping Machine Operator Relationship Specialty Start Date End Date Easton Barclay MD [address] [place] [address] PCP - General Internal Medicine 07/15/22 documented as of this encounter
--- OUTSIDE RECORDS SUMMARY | 2024-10-18 12:01 | XMS_ITS ---
Author Organization Easton Barclay MD Address [address] [place], [place] [id number] Care Team Providers Care Siene Maker Name Role Phone Easton Barclay Primary Care Provider REASON FOR VISIT patient cancelled appt Encounters Encounter Location Date Provider Diagnosis Easton Barclay MD [address] [place], [place] [id number] 06/14/2024 Easton Barclay PLAN OF TREATMENT Next Appt Details Provider Name:Easton estes, 10/24/2024 09:30:00 AM, [address], [address], [place], [place], [phone],
--- OUTSIDE RECORDS SUMMARY | 2024-10-18 12:01 | XMS_ITS ---
Author Organization Easton Barclay MD Address [address] [place], [place] [id number] Care Team Providers Care Network Planner Name Role Phone Easton Barclay Primary Care Provider RESULTS Component Value Reference Range Notes Complete Blood Count Auto Di ff (Not yet reviewed by provider) Interpretation: Performing Lab:[facility], [address] [place] [id number] Notes/Report: White Blood Count 9.6 4.8-10.8 X10*3/uL Red Blood Count 4.01 4.60-5.80 X10*6/uL Hemoglobin 12.9 14.0-18.0 g/dl Hematocrit 38.8 42.0-52.0 % Mean Corpuscular Volume 96.8 80.0-98.0 fL Mean Corpuscular Hemoglobin 32.2 27.0-33.0 pg Mean Corpuscular HGB Conc 33.2 31.0-36.0 g/dl Red Cell Distribution Width 12.3 11.0-16.0 % Platelet Count 322 160-400 X10*3/uL Mean Platelet Volume 9.6 9.4-12.4 fL Neutrophils Percent Auto 71.4 45-73 % Imm Gran Pct Auto 0.5 0.0-0.4 % Lymphocytes Percent Auto 16.7 20-40 % Monocytes Percent Auto 9.1 2-11 % Eosinophils Percent Auto 1.4 0-4 % Basophils Percent Auto 0.9 0-2 % NRBC Pct Auto 0.0 0.0-0.2 /100WBC Neutrophils Absolute Auto 6.9 2.0-8.3 x10*3/u L Imm Gran Abs Auto 0.05 0.00-0.03 X10*3/uL Lymphocytes Absolute Auto 1.6 1.2-4.9 X10*3/u L Monocytes Absolute Auto 0.9 0.1-1.2 X10*3/uL Eosinophils Absolute Auto 0.1 0.0-0.4 X10*3/u L Basophils Absolute Auto 0.1 0.0-0.2 X10*3/uL NRBC Abs Auto 0.000 0.0-0.012 X10*3/uL Comprehensive [place]. Panel Fa st (Not yet reviewed by provider) Interpretation: Performing Lab:[facility], [address] [place] [address] Notes/Report: Sodium 137 135-145 mmol/L Potassium 4.4 3.3-5.1 mmol/L Chloride 102 96-108 mmol/L Carbon Dioxide 26 22-29 mmol/L Anion Gap 13 12-20 Blood Urea Nitrogen 15 9-16 mg/dL Creatinine 1.03 0.5-1.4 mg/dL Estimated Glomerular Filt Rate > 60 Chronic Kidney Disease: Estimated GFR < 60 mL/min/1.73m2 Severe Kidney Disease: Estimated GFR < 15 mL/min/1.73m2 Glucose Fasting 97 60-99 mg/dL Calcium 9.5 8.4-10.2 mg/dL Bilirubin Total 0.5 0.0-1.0 mg/dL Aspartate Amino Transferase 39 5-37 U/L Alanine Aminotransferase 26 0-40 U/L Total Protein 7.8 6.5-8.0 g/dL Albumin Level 3.8 3.5-5.0 g/dL Alkaline Phosphatase 62 39-117 U/L Lipid Panel (Not yet reviewe d by provider) Interpretation: Performing Lab:[facility], [address] [place] [phone] Notes/Report: Triglycerides 85 <150 mg/dL Desirable Triglyceride: less than 150 mg/dL Borderline High Triglyceride 150-199 mg/dL High Triglyceride: 200-499 mg/dL Very High Triglyceride: greater than or equal to 5OO mg/dL Cholesterol 118 <200 mg/dL Desirable Cholesterol: less than 200 mg/dL Borderline High Cholesterol: 200-239 mg/dL High Cholesterol: greater than 239 mg/dL LDL Cholesterol Calculated 47 <100 mg/dL Desirable LDL: less than 100 mg/dL Near Optimal/Above Optimal LDL: 110-129 mg/dL Borderline High LDL: 130-159 mg/dL High LDL: 160-189 mg/dL Very High LDL: greater than or equal to 190 mg/dL HDL Cholesterol 54 >40 mg/dL Desirable HDL: greater than 40 mg/dL Note: This HDL assay may give artificially low results in patients with liver disease. PSA,Total (Free>4and<10) (No t yet reviewed by provider) Interpretation: Performing Lab:[address] [phone] Notes/Report: PSA,Total (Free>4and<10) 6.76 0.00-4.00 ng/mL PSA methodology: Calderon Alinity i Chemiluminescent Microparticle Immunoassay (CMIA) UA ClnCatch+Micro w/rflx Cul t (Not yet reviewed by provider) Interpretation: Performing Lab:[address] [phone] Notes/Report: [id number] Urine, Clean Catch Color Urine Yellow Appearance Urine Clear PH 7.5 5.0-9.0 Glucose Urine UA Negative Negative mg/dL Urine Blood Negative Negative Specific Bumpass - Urine 1.010 1.005-1.025 Urine Protein Negative Neg-Trace mg/dL Urine Ketones Negative Negative mg/dL Nitrite Urine Negative Negative Leukocyte Esterase Urine Trace Negative RBC Urine 0-2 0-2 /HPF WBC Urine 0-5 0-5 /HPF Squamous Epithelial Cell Urine 0-2 0-2 /HPF Bacteria Urine None Seen None Seen Hyaline Casts Urine 0-2 0-2 /LPF REASON FOR VISIT yearly fasting labs IMMUNIZATIONS Vaccine Route Administration Date Status Comme nts Influenza High Dose IM Intramuscular 10/18/2024 Administer ed Encounters Encounter Location Date Provider Diagnosis Easton Barclay MD [address] [place], [place] [id number] 10/18/2024 Easton Barclay Essential hypertensi on I10 ; Encounter for administration of vaccine Z23 and Hypercholesteremia E78.00 ASSESSMENTS Encounter Date Diagnosis Assessment Notes Treatment Notes Treatment Clinical Notes 10/18/2024 Essential hypertensi on (ICD-10 - I10) 10/18/2024 Encounter for administration of vaccine (ICD-10 - Z23) 10/18/2024 Hypercholesteremia (ICD-10 - E78.00) PLAN OF TREATMENT Pending Test Test Name Order Date Complete Blood Count Auto Diff 5 Comprehensive [place]. Panel Fast 5 Lipid Panel 10/18/2024 PSA,Total (Free>4and<10) 10/18/2024 UA ClnCatch+Micro w/rflx Cult 10/18/2024 Next Appt Details Provider Name:Easton estes, 10/24/2024 09:30:00 AM, [address] [place] [address], [address], [place], [place], [id number],
--- OUTSIDE RECORDS SUMMARY | 2024-10-18 12:02 | XMS_ITS ---
Author Organization [facility] Address [address] [place] [phone] Care Team Providers Care Custom Dressmaker Name Role Phone Easton Barclay MD Primary Care Provider Neto Klein Unavailable [phone] REASON FOR VISIT screening,fam hx colon ca,hx polyps Encounters Encounter Location Date Provider Diagnosis [facility] [place] [address] [place], [place] [phone] 07/04/2024 Neto Johns PLAN OF TREATMENT No Information
--- OUTSIDE RECORDS SUMMARY | 2024-10-18 12:02 | XMS_ITS ---
Author Organization Easton Barclay MD Address [address] [place] [id number] Care Team Providers Care Toy Consultant Name Role Phone Easton Barclay Primary Care Provider ALLERGIES No Known Allergies REASON FOR VISIT 6 month must see Montez SARAVIA started Eliquis on 05-14-24 A Fib MEDICATIONS Medication SIG (Take, Route, Frequency, Duration) Notes Start Date End Date Status Valsartan 320 MG TAKE 1 TABLET BY KIERSTEN TH EVERY DAY IN THE MORNING for 90 Active Torsemide 10 MG TAKE 1 TABLET BY KIERSTEN TH EVERY DAY for 90 Active Rosuvastatin Calcium 10 MG TAKE 1 TABLET BY MOUTH EVERY DAY Active amLODIPine Besylate 5 MG TAKE 1 TABLET B Y MOUTH EVERY DAY Active Ezetimibe 10 MG TAKE 1 TABLET BY KIERSTEN TH EVERY DAY Active Vitamin D 50 MCG (1999) 1 tablet Oral ly Once a day for 30 day(s) Active Aspir-Low 81 MG 1 tablet Orally Once a day for 30 day(s) Active Metoprolol Succinate ER 200 MG TAKE 1 TABLET BY MOUTH EVERY DAY Active Tadalafil 20 MG 1 tablet as needed O rally Once a day as needed for 30 day(s) 05/19/2023 Active Omeprazole 20 MG TAKE 1 TABLET BY KIERSTEN TH ONCE EVERY DAY IN THE MORNING 28 DAYS for 84 Active Eliquis 5 MG as directed Orally T wice a day Active PROBLEMS Problem Type ICD Code Onset Dates Problem Status W/U Status Risk SNOMED Code Notes Problem Paroxysmal atrial fibrillation (I48.0) Active confirmed 976161449 VITAL SIGNS BMI 36.12 kg/m2 05/17/2024 Blood pressure systolic 118 mm Hg 05/17/20 24 Blood pressure diastolic 92 mm Hg 024 Height 71 in 05/17/2024 Weight 259 lbs 05/17/2024 weight is up 11 pounds since 02-11-24 Encounters Encounter Location Date Provider Diagnosis Easton Barclay MD [address] [place], [place] [phone] 05/17/2024 Easton Barclay Paroxysmal atrial fibrillation I48.0 ; Hypercholesteremia E78.00 ; Elevated PSA R97.20 and Family hx of colon cancer Z80.0 ASSESSMENTS Encounter Date Diagnosis Assessment Notes Treatment Notes Treatment Clinical Notes 05/17/2024 Paroxysmal atrial fibrillation (ICD-10 - I48.0) has resolved, will continue to monitor 05/17/2024 Hypercholesteremia (ICD-10 - E78.00) doing well on meds, will continue current regiment 05/17/2024 Elevated PSA (ICD-10 - R97.20) doesn't want to go to urology at this point. is aware that it could be cancer. 05/17/2024 Family hx of colon cancer (ICD-10 - Z80.0) is going to make appt with gi in [place] PLAN OF TREATMENT Medication Medication Name Sig Start Date Stop Date Notes Rosuvastatin Calcium 10 MG TAKE 1 TABLET BY MOUTH EVERY DAY Ezetimibe 10 MG TAKE 1 TABLET BY KIERSTEN TH EVERY DAY Treatment Notes Assessment Notes Paroxysmal atrial fibrillation has resol jose, will continue to monitor Hypercholesteremia doing well on meds, will continue current regiment Elevated PSA doesn't want to go t o urology at this point. is aware that it could be cancer. Family hx of colon cancer is going to christine linda appt with gi in [place] Next Appt Details Provider Name:Easton Jay ier, 10/24/2024 09:30:00 AM, [address], [address], [place], [place], [phone], Progress Notes * Examination Category Sub-Category Detail Notes General Examination GENERAL APPEARANCE: well dev eloped, well nourished HEAD: normocephalic HEART: regular rate and rhy thm, no murmurs, rubs, gallops LUNGS: abnormal with rales in left base SKIN: good turgor EXTREMITIES: 2+ pitting edema low er extremities
--- OUTSIDE RECORDS SUMMARY | 2024-10-18 12:02 | XMS_ITS ---
Author Organization [facility] Address [address] [place] [phone] Care Team Providers Care Shirt Sewer Name Role Phone Easton Barclay MD Primary Care Provider Neto Klein Unavailable [phone] REASON FOR VISIT CANCELLED PROCEDURE ON 07-04-2024 Encounters Encounter Location Date Provider Diagnosis [facility] [address] [place] [phone] 06/14/2024 Neto Johns PLAN OF TREATMENT No Information
--- OUTSIDE RECORDS SUMMARY | 2024-10-18 12:02 | XMS_ITS | Patient Health Record ---
Author Organization [facility] Address [address] [place] [phone] Care Team Providers Care Supervisor Shipping Room Name Role Phone Easton Barclay MD Primary Care Provider Neto Klein Unavailable [phone] ALLERGIES No Known Allergies REASON FOR REFERRAL No Information MEDICATIONS Medication SIG (Take, Route, Frequency, Duration) Notes Start Date End Date Status Torsemide 10 MG TAKE 1 TABLET BY KIERSTEN TH EVERY DAY Oral for 90 Active amLODIPine Besylate 10 MG 1 tablet Orall y Once a day Active Folic Acid 1 MG 1 tablet Orally Once a day for 30 day(s) Active Thiamine HCl 100 MG 1 tablet Orally Once a day for 30 day(s) Active Aspirin Adult Low Dose 81 MG 1 tablet Orally Once a day for 30 day(s) Active Vitamin D Active Citracal + D Active Omeprazole 20 MG Oral for 84 A ctive Vitamin B Complex Ac tive Ezetimibe 10 MG TAKE 1 TABLET BY KIERSTEN TH EVERY DAY Oral for 90 Active Metoprolol Succinate ER 200 MG Oral for 90 Active Rosuvastatin Calcium 10 MG TAKE 1 TABLET BY MOUTH EVERY DAY Oral for 90 Active Valsartan 320 MG TAKE 1 TABLET BY KIERSTEN TH EVERY DAY IN THE MORNING Oral for 90 Active SOCIAL HISTORY Tobacco Use: Social History Observation Description Date Details (start date - stop date) Never Smoker NA - NA Sex Assigned At : Social History Observation Description Sex Assigned At Unknown Tobacco Use/Smoking Question Answer Notes Patient is a nonsmoker Alcohol Screen Question Answer Notes Did you have a drink contain ing alcohol in the past year? Yes How often did you have a dri nk containing alcohol in the past year? 4 or more times a week (4 points) How many drinks did you have on a typical day when you were drinking in the past year? 3 or 4 drinks (1 point) How often did you have 6 or more drinks on one occasion in the past year? Never (0 point) Points 5 Interpretation Positive PROBLEMS Problem Type ICD Code Onset Dates Problem Status W/U Status Risk SNOMED Code Notes Problem Colon cancer screening (Z12.11) Active confirmed Colon cancer screening (743117397) Problem Family history of colon cancer (Z80.0) Active confirmed Family History of Cancer of Colon (Situation) (845306220) Problem GERD (gastroesophagea l reflux disease) (K21.9) Active confirmed Gastroesoph ageal reflux disease (566268860) Problem History of colon polyps (Z86.010) Active confirmed History of polyp of colon (399613012) Problem Preprocedural examination (Z01.818) Active confirmed Preprocedural examination (351772503894587) VITAL SIGNS Blood pressure diastolic 00 mm Hg 03/09/2024 Height 72 in 03/09/2024 Blood pressure systolic 00 mm Hg 03/09/2024 Weight 257 lbs 03/09/2024 BMI 34.85 kg/m2 03/09/2024 Encounters Encounter Location Date Provider Diagnosis [facility] [place] Out[place] [address] [place] [phone] 07/04/2024 Neto Johns [facility] [address] [place] [phone] 03/09/2024 Neto Johns GERD (gastroesophage al reflux disease) K21.9 ; Preprocedural examination Z01.818 ; Colon cancer screening Z12.11 ; Family history of colon cancer Z80.0 and History of colon polyps Z86.010 [facility] [address] [place] [phone] 03/10/2024 Neto Johns [facility] [address] [phone] 06/14/2024 Neto Johns ASSESSMENTS Encounter Date Diagnosis Assessment Notes Treatment Notes Treatment Clinical Notes 03/09/2024 Preprocedural examination (ICD-10 - Z01.818) 03/09/2024 GERD (gastroesophageal reflux disease) (ICD-10 - K21.9) 03/09/2024 Colon cancer screening (ICD-10 - Z12.11) We will ask Dr. Berumen if you need antibiotics for the colonoscopy in regard to your aortic valve.....he advised us that no antibiotics are required. Stop aspirin for 2 days before the colonoscopy Do not take the Torsemide diuretic the day before nor on the day of the colonoscopy 03/09/2024 Family history of colon cancer (ICD-10 - Z80.0) 03/09/2024 History of colon polyps (ICD-10 - Z86.010) PLAN OF TREATMENT Future Test Test Name Order Date COLONOSCOPY 03/09/2024 Insurance Providers Payer Name Payer Address Payer Phone Subscriber Number Group Number Insured Name Patient Relationship to Insured Coverage Start Date Coverage End Date [facility] [address] [place] [phone] [id number] DARSHAN LEE Self - patient is the insured 4 MEDICAL (GENERAL) HISTORY Medical History History ICD Code Hypertension Aortic stenosis--TAVR Pacemaker Denies [place],DM,CVA,Lung disease,renal dise ase Colonoscopies with Dr. Tomas salazar--most recent was in approx 2016--has had previous polyps removed GERD--has had 1 upper endo in the past w ith Dr. Manrique Hypercholesterolemia Surgical History Surgery Date(Month/Year) Aortic valve--TAVR 2021 Pacemaker 2021 Skin cancers--Melanoma, Basal cell, Squa mous cell
--- OUTSIDE RECORDS SUMMARY | 2024-10-18 12:02 | XMS_ITS ---
Author Organization [facility] Address [address] [place] [phone] Care Team Providers Care Cna Per Diem Name Role Phone Easton Barclay MD Primary Care Provider Neto Klein [phone] REASON FOR VISIT antibiotics Encounters Encounter Location Date Provider Diagnosis [facility] [address] [place] [phone] 03/10/2024 Neto Johns PLAN OF TREATMENT No Information
--- OUTSIDE RECORDS SUMMARY | 2024-10-18 12:02 | XMS_ITS | Patient Health Record ---
Author Organization Easton Barclay MD Address [address] [place], [place] [id number] Care Team Providers Care Manager Multimedia Name Role Phone Easton Barclay Primary Care Provider [phone] ALLERGIES No Known Allergies RESULTS Component Value Reference Range Notes Occult Blood, Stool, Guaiac Reviewed date:10/20/2023 07:17:36 PM Interpretation:Negative Performing Lab: Notes/Report: Negative Occult Blood, Stool, Guaiac Urinalysis and Microscopic Reviewed date:10/20/2023 06:42:06 PM Interpretation: Performing Lab:[facility], [address] [place] [phone] Notes/Report: Color Urine Yellow Appearance Urine Clear PH 7.5 5.0-9.0 Glucose Urine UA Negative Negative mg/dL Urine Blood Negative Negative Specific [place] - Urine 1.015 1.005-1.025 Urine Protein Trace Neg-Trace mg/dL Urine Ketones Negative Negative mg/dL Nitrite Urine Negative Negative Leukocyte Esterase Urine Negative Negative RBC Urine 0-2 0-2 /HPF WBC Urine 0-5 0-5 /HPF Squamous Epithelial Cell Urine 0-2 0-2 /HPF Bacteria Urine None Seen None Seen Hyaline Casts Urine 0-2 0-2 /LPF Liver Panel Reviewed date:05/10/2024 04:57:48 PM Interpretation: Performing Lab:[facility], [address] [place] [phone] Notes/Report: Bilirubin Total 0.7 0.0-1.0 mg/dL Bilirubin Direct 0.3 0.0-0.5 mg/dL Aspartate Amino Transferase 39 5-37 U/L Alanine Aminotransferase 43 0-40 U/L Total Protein 7.8 6.5-8.0 g/dL Albumin Level 4.2 3.5-5.0 g/dL Alkaline Phosphatase 63 39-117 U/L Lipid Panel with Reflex Reviewed date:05/10/2024 05:07:03 PM Interpretation: Performing Lab:[facility], [address] [place] [phone] Notes/Report: Triglycerides 135 <150 mg/dL Desirable Triglyceride: less than 150 mg/dL Borderline High Triglyceride 150-199 mg/dL High Triglyceride: 200-499 mg/dL Very High Triglyceride: greater than or equal to 5OO mg/dL Cholesterol 140 <200 mg/dL Desirable Cholesterol: less than 200 mg/dL Borderline High Cholesterol: 200-239 mg/dL High Cholesterol: greater than 239 mg/dL LDL Cholesterol Calculated 49 <100 mg/dL Desirable LDL: less than 100 mg/dL Near Optimal/Above Optimal LDL: 110-129 mg/dL Borderline High LDL: 130-159 mg/dL High LDL: 160-189 mg/dL Very High LDL: greater than or equal to 190 mg/dL HDL Cholesterol 64 >40 mg/dL Desirable HDL: greater than 40 mg/dL Note: This HDL assay may give artificially low results in patients with liver disease. PSA,Total (Free>4and<10) Reviewed date:05/17/2024 12:03:42 PM Interpretation:see back 05-17-24 Performing Lab:[facility], [address] [place] [phone] Notes/Report: PSA,Total (Free>4and<10) 5.34 0.00-4.00 ng/mL PSA methodology: Calderon Alinity i Chemiluminescent Microparticle Immunoassay (CMIA) PSA Free and Total Reviewed date:05/17/2024 12:03:29 PM Interpretation:see back 05-17-24 Performing Lab:[address] [phone] Notes/Report: Prostate Specific Ag Total 5.0 < OR = 4.0 ng/ mL Percent Free Prostate Spec Ag 20 >25 % (calc ) PSA(ng/mL) Free PSA(%) Estimated(x) Probability of Cancer(as%) 0-2.5 (*) Approx. 1 2.6-4.0(1) 0-27(2) 24(3) 4.1-10(4) 0-10 56 11-15 28 16-20 20 21-25 16 >or =26 8 >10(+) N/A >50 References:(1)Rukhsana et al.:Urology 60: 469-474 (2001) (2)Rukhsana et al.:J.Urol 168: 922-925 (2001) Free PSA(%) Sensitivity(%) Specificity(%) < or = 25 85 19 < or = 30 93 9 (3)Catalona et al.:JAMES 277: 3240-4281 (1996) (4)Catalona et al.:JAMES 279: 4025-4506 (1997) (x)These estimates vary with age, ethnicity, family history and CHRISTINA results. (*)The diagnostic usefulness of % Free PSA has not been established in patients with total PSA below 2.6 ng/mL (+)In men with PSA above 10 ng/mL, prostate cancer risk is determined by total PSA alone. The Total PSA value from this assay system is standardized against the equimolar PSA standard. The test result will be approximately 20% higher when compared to the WHO-standardized Total PSA (Siemens assay). Comparison of serial PSA results should be interpreted with this fact in mind. PSA was performed using the Shante Chang Immunoassay method. Values obtained from different assay methods cannot be used interchangeably. PSA levels, regardless of value, should not be interpreted as absolute evidence of the presence or absence of disease. THIS TEST WAS PERFORMED AT: [facility] [address] [phone] GILLIAN LANDERS MD Free Prostate Spec Ag 1.0 Complete Blood Count Auto Di ff (Not yet reviewed by provider) Interpretation: Performing Lab:[facility], [address] [place] [phone] Notes/Report: White Blood Count 9.6 4.8-10.8 X10*3/uL [...] NRBC Abs Auto 0.000 0.0-0.012 X10*3/uL Comprehensive [place]. Panel Fa st (Not yet reviewed by provider) Interpretation: Performing Lab:[facility], [address] [place] [phone] Notes/Report: Sodium 137 135-145 mmol/L Potassium 4.4 [...] yet reviewe d by provider) Interpretation: Performing Lab:[address] [phone] Notes/Report: Triglycerides 85 <150 mg/dL Desirable Triglyceride: [...] t yet reviewed by provider) Interpretation: Performing Lab:[address] [phone] Notes/Report: PSA,Total (Free>4and<10) 6.76 0.00-4.00 ng/mL PSA methodology: Calderon Alinity i Chemiluminescent Microparticle Immunoassay (CMIA) UA ClnCatch+Micro w/rflx Cul t (Not yet reviewed by provider) Interpretation: Performing Lab:[address] [phone] Notes/Report: [id number] Urine, Clean Catch Color Urine Yellow Appearance Urine Clear PH 7.5 5.0-9.0 Glucose Urine UA Negative Negative mg/dL Urine Blood Negative Negative Specific [place] - Urine 1.010 1.005-1.025 Urine Protein Negative Neg-Trace mg/dL Urine Ketones Negative Negative mg/dL Nitrite Urine Negative Negative Leukocyte Esterase Urine Trace Negative RBC Urine 0-2 0-2 /HPF WBC Urine 0-5 0-5 /HPF Squamous Epithelial Cell Urine 0-2 0-2 /HPF Bacteria Urine None Seen None Seen Hyaline Casts Urine 0-2 0-2 /LPF REASON FOR REFERRAL Reason family history of co zion cancer Diagnosis 1 Family history of co zion cancer (Z80.0) Referral Organization Easton Barclay MD Referring Provider First Name Easton Referring Provider Last Name Deny Referring Provider Speciality Internal M edicine Referred Provider Neto Rios Referred Provider Specialty Gastroentero logy General Notes Monica Royal 12:55:39 PM EST > info faxed , Monica Royal 10/27/2023 02:53:52 PM EST > info mailed to patient Referral Priority Routine Referral Appointment Date 03/09/2024 MEDICATIONS Medication SIG (Take, Route, Frequency, Duration) Notes Start Date End Date Status Eliquis 5 MG as directed Orally T wice a day Active Vitamin D 50 MCG (1999) 1 tablet Oral ly Once a day for 30 day(s) Active Aspir-Low 81 MG 1 tablet Orally Once a day for 30 day(s) Active Tadalafil 20 MG TAKE ONE TABLET BY M OUTH EVERY DAY NEEDED for 30 Active Omeprazole 20 MG TAKE 1 TABLET BY KIERSTEN TH ONCE EVERY DAY IN THE MORNING for 84 Active Rosuvastatin Calcium 10 MG TAKE 1 TABLET BY MOUTH EVERY DAY for 90 Active Valsartan 320 MG TAKE 1 TABLET BY KIERSTEN TH EVERY DAY IN THE MORNING for 90 Active Metoprolol Succinate ER 200 MG TAKE 1 TABLET BY MOUTH EVERY DAY for 90 Active Torsemide 10 MG TAKE 1 TABLET BY KIERSTEN TH EVERY DAY for 90 Active amLODIPine Besylate 5 MG TAKE 1 TABLET B Y MOUTH EVERY DAY for 90 Active Ezetimibe 10 MG TAKE 1 TABLET BY KIERSTEN TH EVERY DAY for 90 Active IMMUNIZATIONS Vaccine Route Administration Date Status Comme nts SARS-COV-2 Moderna Unknown 12/12/2020 Administered SARS-COV-2 Moderna Unknown 01/09/2021 Administered Fluarix Quadrivalent IM Intramuscular 07/11/2022 Administe red Prevnar 20 IM Intramuscular 05/12/2023 Administered Influenza High Dose IM Intramuscular 10/18/2024 Administer ed SOCIAL HISTORY Tobacco Use: Social History Observation Description Date Details (start date - stop date) Never Smoker NA - NA Sex Assigned At : Social History Observation Description Sex Assigned At Unknown Tobacco Use/Smoking Question Answer Notes Patient is a nonsmoker Additional Findings: Tobacco Non-User Cu rrent non-smoker, currently using no form of tobacco Alcohol Screen Question Answer Notes Did you [...] W/U Status Risk SNOMED Code Notes Problem Aortic valve replace d (Z95.2) Active confirmed 3733202717716 Problem Essential hypertension (I10) Active confirmed 18065630 Problem Hypercholesteremia (E78.00) Active confirmed 60344082 Problem Pacemaker (Z95.0) Active confirmed 4415 75286 Problem History of skin cancer (Z85.828) Active confirmed 521937446 Problem Psoriasis (L40.9) Active confirmed 9014 002 Problem Cervical disc diseas e (M50.90) Active confirmed 164848577 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 7 5212023 Problem Acute drug-induced gout of right foot (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) Active confirmed 223563858366458 Problem Vasculogenic erectil e dysfunction, unspecified vasculogenic erectile dysfunction type (N52.9) Active confirmed 9966650656111 Problem Purulent bronchitis (J41.1) Active confirmed 22587721 Problem Paroxysmal atrial fibrillation (I48.0) Active confirmed 081322984 VITAL SIGNS Blood pressure diastolic 92 mm Hg 05/17/2024 chantelle ght is up 11 pounds since 02-11-24 Height 71 in 05/17/2024 weight is up 11 pounds since 02-11-24 Blood pressure systolic 118 mm Hg 05/17/2024 weig ht is up 11 pounds since 02-11-24 Weight 259 lbs 05/17/2024 weight is up 11 pounds since 02-11-24 BMI 36.12 kg/m2 05/17/2024 weight is up 11 pounds since 02-11-24 Encounters Encounter Location Date Provider Diagnosis Easton Barclay MD [address] [place] [address] [place] [id number] 10/20/2023 Easton Barclay Acute drug-induced g out of right foot M10.271 ; Encounter for general adult medical examination without abnormal findings Z00.00 ; Microscopic hematuria R31.29 ; Elevated PSA R97.20 ; Family history of colon cancer Z80.0 ; Essential hypertension I10 ; Hypercholesteremia E78.00 ; Colon cancer screening Z12.11 and Depression screening Z13.31 Easton Barclay MD [address] [place] [id number] 05/17/2024 Easton Barclay Paroxysmal atrial fibrillation I48.0 ; Hypercholesteremia E78.00 ; Elevated PSA R97.20 and Family hx of colon cancer Z80.0 [address]on Barclay MD [address] [place] [id number] 05/10/2024 Easton Barclay Elevated PSA R97.20 and Hypercholesteremia E78.00 [address]on Barclay MD [address] [place] [id number] 10/18/2024 Easton Barclay Essential hypertensi on I10 ; Encounter for administration of vaccine Z23 and Hypercholesteremia E78.00 Easton Barclay MD [address] [place] [id number] 06/14/2024 Easton Barclay MD [address] [place] [id number] 02/11/2024 Easton Barclay Purulent bronchitis J41.1 ASSESSMENTS Encounter Date Diagnosis Assessment Notes Treatment Notes Treatment Clinical Notes 10/20/2023 Encounter for genera l adult medical examination without abnormal findings (ICD-10 - Z00.00) labs reviewed and discussed with pt 10/20/2023 Acute drug-induced g out of right foot (ICD-10 - M10.271) is doing well with treatment at present, will continue current regiment 05/17/2024 Paroxysmal atrial fibrillation (ICD-10 - I48.0) has resolved, will continue to monitor 05/17/2024 Hypercholesteremia (ICD-10 - E78.00) doing well on meds, will continue current regiment 05/10/2024 Elevated PSA (ICD-10 - R97.20) 05/10/2024 Hypercholesteremia (ICD-10 - E78.00) 10/18/2024 Essential hypertensi on (ICD-10 - I10) 10/18/2024 Encounter for administration of vaccine (ICD-10 - Z23) 02/11/2024 Purulent bronchitis (ICD-10 - J41.1) 10/20/2023 Microscopic hematuri a (ICD-10 - R31.29) will continue to monitor, pending labs 05/17/2024 Elevated PSA (ICD-10 - R97.20) doesn't want to go to urology at this point. is aware that it could be cancer. 10/18/2024 Hypercholesteremia (ICD-10 - E78.00) 10/20/2023 Elevated PSA (ICD-10 - R97.20) does not worry about it but understands that it could be prostate cancer 05/17/2024 Family hx of colon cancer (ICD-10 - Z80.0) is going to make appt with gi in [place] 10/20/2023 Family history of co zion cancer (ICD-10 - Z80.0) get referral to dr rios for colonoscopy 10/20/2023 Essential hypertensi on (ICD-10 - I10) stable, will continue current regiment 10/20/2023 Hypercholesteremia (ICD-10 - E78.00) stable, will continue current regiment 10/20/2023 Colon cancer screeni ng (ICD-10 - Z12.11) guaiac negative 10/20/2023 Depression screening (ICD-10 - Z13.31) negative screen PLAN OF TREATMENT Pending Test Test Name Order Date Complete Blood Count Auto Diff 5 Comprehensive [place]. Panel Fast 5 Lipid Panel 10/18/2024 PSA,Total (Free>4and<10) 10/18/2024 UA ClnCatch+Micro w/rflx Cult 10/18/2024 Next Appt Details Provider Name:Easton estes, 10/24/2024 09:30:00 AM, [address] [place] [address] Drive, [address], [place], [place], [id number], Insurance Providers Payer Name Payer Address Payer Phone Subscriber Number Group Number Insured Name Patient Relationship to Insured Coverage Start Date Coverage End Date MEDICARE [employer] [facility] [place] [address] [id number] Angela Alan Self - patient is the insured [facility] [address] [facility] [address] [facility] [phone] [id number] HeribertoAlan ramos Self - patient is the insured MEDICAL (GENERAL) HISTORY Medical History History ICD Code colonoscopy 2017. brother with colon can cer so is due this year history of pacemaker and aortic valve. 2 021
[2024-10-19 17:53] LABS: Free Prostate Spec Ag 0.8 ng/mL; Percent Free Prostate Spec Ag 12 % (calc) (>25); Prostate Specific Ag Total 6.9 ng/mL (< OR = 4.0)
== END 2024-10-18 07:31 | disposition home or self-care (01) ==
LOC: HO.LNP 07:30
PROVIDERS: Visit Provider Internal Medicine
DX: I10 Essential (primary) hypertension (principal); E78.00 Pure hypercholesterolemia, unspecified; Z12.5 Encounter for screening for malignant neoplasm of prostate
CPT/HCPCS: 80053; 80061; 81001; 81003; 84153; 84154; 85025

== ENCOUNTER 2025-05-05 11:47 | Outpatient (REF) | payer MEDICARE, OTHER, SELFPAY ==
--- OUTSIDE RECORDS SUMMARY | 2024-07-04 04:30 | XMS_ITS ---
Author Organization [facility] Address [address] [place] [address] Care Team Providers Care Manager Global Name Role Phone Deny MURPHY, Easton Primary Care Provider Neto Klein [phone] REASON FOR VISIT screening,fam hx colon ca,hx polyps Encounters Encounter Location Date Provider Diagnosis [facility] Outpatient [address] [place] [phone] 07/04/2024 Neto Johns Plan Of Treatment No Information Progress Notes * DARSHAN LEE QDOB: [birth year] (75 yo M)Acc No.[id number]:07/04/2024 COLON WITH MAC Patient: Eliecer PERLA DARSHAN Q Provider: Amy Johns MD :[id number] A ge:74 Y S ex:Male Date:07/04/2024 Address:[address] [place] [address] Pcp:Easton Barclay MD Subjective: * Chief Complaints: * 1 . Screening,fam hx colon ca,hx polyps. * Medical History: Objective: * Vitals: Assessment: Plan: * Treatment: * * The named appointment provid er may or may not be the originator of this progress note, and it is not deemed complete until electronically signed by the appointment provider. Sign off status: Pending * Provider: Amy Johns MD Date: 1 Generated for Risa hernandez/Geoffrey/eTransmitting on: 0 05/05/2025 11:49 AM EDT
--- OUTSIDE RECORDS SUMMARY | 2025-05-05 11:50 | XMS_ITS | Clinical Summary ---
Author Organization [address] [place] [address] Address [address] [place] [address] Phone Care Team Providers Care Principal Biostatistician Name Role Phone Easton Barclay MD Primary Care Provider Allergies No known active allergies Medications vitamin B complex (VITAMINS B COMPLEX ORAL) Take 1 tablet by mouth 1 (one) time each day. Active amLODIPine (NORVASC) 10 mg tablet Take 1 tablet (10 mg total) by mouth 1 (one) time each day. Active folic acid (FOLVITE) 1 mg tablet Take 1 tablet (1,000 mcg total) by mouth 1 (one) time each day. Active torsemide (DEMADEX) 10 mg tablet Take 1 tablet (10 mg total) by mouth 1 (one) time each day. Active CALCIUM CITRATE ORAL 2 tablet daily Activ e multivitamin (MULTIPLE VITAMINS ORAL) Take 1 tablet by mouth 1 (one) time each day. Active cholecalciferol , vitamin D3, (CHOLECALCIFERO L, VIT D3,,BULK, MISC) Take 4,000 Units by mouth 1 (one) time each day. 2 daily Active ezetimibe (ZETIA) 10 mg tablet Take 1 tablet (10 mg total) by mouth 1 (one) time each day. Active metoprolol succinate (TOPROL-XL) 200 mg 24 hr tablet Take 1 tablet (200 mg total) by mouth 1 (one) time each day. Active omeprazole OTC (PriLOSEC OTC) 20 mg EC tablet Take 1 tablet (20 mg total) by mouth 1 (one) time each day. Active rosuvastatin (CRESTOR) 10 mg tablet Take 1 tablet (10 mg total) by mouth 1 (one) time each day. Active valsartan (DIOVAN) 320 mg tablet Take 1 tablet (320 mg total) by mouth 1 (one) time each day. Active apixaban (Eliquis) 5 mg tablet TAKE 1 TABLET BY MOUTH TWICE A DAY 180 tablet 1 12/28/19 25 Active Additional Information Patient taking differently:5 mg oralDaily, Reported on 04/04/2025 aspirin 81 mg EC tablet Take 1 tablet (81 mg total) by mouth 1 (one) time each day. Active tirzepatide, weight loss, (Zepbound) 2.5 mg/0.5 mL injectionIndica tions:Class 1 obesity due to excess calories with serious comorbidity and body mass index (BMI) of 34.0 to 34.9 in adult,S/p TAVR (transcatheter aortic valve replacement), bioprosthetic,P aroxysmal atrial fibrillation (CMS/HCC V24, CMS/HCC V28),Abnormal blood sugar INJECT 0.5 ML UNDER THE SKIN 1 (ONE) TIME PER WEEK FOR 30 DAYS, THEN 1 ML 1 (ONE) TIME PER WEEK. 2 mL 1 04/07/20 25 Active tirzepatide, weight loss, (Zepbound) 2.5 mg/0.5 mL solutionIndicat ions:Class 1 obesity due to excess calories with serious comorbidity and body mass index (BMI) of 34.0 to 34.9 in adult,S/p TAVR (transcatheter aortic valve replacement), bioprosthetic,P aroxysmal atrial fibrillation (CMS/HCC V24, CMS/HCC V28),Abnormal blood sugar Inject 0.5 mL under the skin 1 (one) time per week for 30 days, THEN 1 mL 1 (one) time per week. 6 mL 3 04/04/20 25 025 Discontinued Zepbound 2.5 mg/0.5 mL solutionIndicat ions:Class 1 obesity due to excess calories with serious comorbidity and body mass index (BMI) of 34.0 to 34.9 in adult,S/p TAVR (transcatheter aortic valve replacement), bioprosthetic,P aroxysmal atrial fibrillation (CMS/HCC V24, CMS/HCC V28),Abnormal blood sugar INJECT 0.5 ML UNDER THE SKIN 1 (ONE) TIME PER WEEK FOR 30 DAYS, THEN 1 ML 1 (ONE) TIME PER WEEK. 6 mL 3 04/07/20 25 025 Discontinued Active Problems Problem Noted Date Diagnosed Date Abnormal blood sugar 04/04/2025 Paroxysmal atrial fibrillation (CMS/HCC V24, CMS /HCC V28) 06/04/2023 Overview (02/06/2025): Detected on device Assessment & Plan (04/05/2025 12:25 PM EDT): Orders: ECG 12 lead Assessment & Plan (02/06/2025 12:08 PM EDT): Paroxysmal atrial fibrillation. Asymptomatic. CHADSVASc - 5. Continue with apixaban and metoprolol. Orders: ECG 12 lead Venous insufficiency 02/17/2022 Overview (02/06/2025): April 2016 left lower extremity study with 7.9-second high thigh and the great saphenous vein reflux with no DVT Assessment & Plan (02/06/2025 12:08 PM EDT): Edema likely secondary to venous insufficiency. Continue with compression stockings. Educated about reducing sodium intake, elevation of extremities while seated, weight loss and exercise. S/p TAVR (transcatheter aort ic valve replacement), bioprosthetic 02/17/2022 Overview (02/06/2025): May 30, 2021 - successful implantation of a #29 Luna S3 ultra valve placed percutaneously from a right femoral artery approach under moderate sedation by Dr. Berumen; no complications were encountered May 2024 echocardiogram showing preserved LV systolic function LVEF 60- 65%, moderate concentric left ventricular hypertrophy, normal regional wall motion, normal biatrial size, normal RV systolic function, well seated TAVR valve with no aortic insufficiency, mild tricuspid regurgitation, normal pulmonary artery systolic pressures Assessment & Plan (02/06/2025 12:08 PM EDT): Successful TAVR using 29 mm Luna S3 Bioprosthetic valve on 05/30/21. No intra or post operative complications. The patient continues to enjoy symptomatic improvement following his TAVR. His valve is working well on exam, by echocardiogram and by symptoms. Instructed him about the need for prophylactic antibiotics prior to dental work. Obesity 02/17/2022 Assessment & Plan (02/06/2025 12:08 PM EDT): BMI 34.58. We discussed risk reduction through lifestyle choices including healthy diet, routine exercise and weight management. Consider GLP1 injection. 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 Montejo Assessment & Plan (02/06/2025 12:08 PM EDT): 2.1% burden of atrial fibrillation along with occasional SVT. No other significant arrhythmias. Normal device function on last check. [facility]. Old [place] (myocardial infarction) 01/22/2021 Hypertension 01/22/2021 Assessment & Plan (04/05/2025 12:25 PM EDT): Assessment & Plan (02/06/2025 12:08 PM EDT): Continue with metoprolol, amlodipine and valsartan. Hyperlipidemia 01/22/2021 Assessment & Plan (04/05/2025 12:25 PM EDT): Orders: ECG 12 lead Assessment & Plan (02/06/2025 12:08 PM EDT): Continue with rosuvastatin and ezetimibe. Aortic stenosis 01/22/2021 Overview (07/12/2024): moderate to severe Encounters Date Type Department Care Team Description 04/18/2025 9:35 AM EDT Ancillary Procedure [facility] - [address] [place] [address] 04/18/2025 Telephone [facility] - [address] [place] [address] Felicita Trinidad PA 04/04/2025 9:40 AM EDT Consult [facility] [address] [place] [address] Nicole Montejo MD Paroxysmal atrial fibrillation (CMS/HCC V24, CMS/HCC V28) (Primary Dx); Hyperlipidemia, unspecified hyperlipidemia type; History of transcatheter aortic valve replacement (TAVR); Primary hypertension 03/21/2025 10:15 AM EDT Ancillary Procedure [facility] - [address] [place] [address] 03/17/2025 Telephone [facility] [address] [place] [address] José Miguel Whitfield NP Medication 02/06/2025 9:10 AM EDT Office Visit [facility] [address] [place] [address] José Miguel Whitfield NP Paroxysmal atrial fibrillation (CMS/HCC V24, CMS/HCC V28) (Primary Dx); Venous insufficiency; S/p TAVR (transcatheter aortic valve replacement), bioprosthetic; Pacemaker; Class 1 obesity due to excess calories with serious comorbidity and body mass index (BMI) of 34.0 to 34.9 in adult; Primary hypertension; Hyperlipidemia, unspecified hyperlipidemia type from Last 3 Months Surgical History Surgery Date Site/Laterality Comments AORTIC VALVE REPLACEMENT INSERT / REPLACE / REMOVE PACEMAKER Medical History Medical History Date Comments Atrial fibrillation (CMS/HCC V24, CMS/HCC V28) Heart valve disease Hypertension Heart block Alcohol abuse with physiological dependence (CMS /HCC V24, CMS/HCC V28) LVH (left ventricular hypertrophy) Social History Tobacco Use Types Packs/Day Years Used Date Smoking Tobacco: Never Smokeless Tobacco: Never Tobacco Cessation:Counseling Given: Not Answered Alcohol Use Standard Drinks/Week Comments Yes 0 (1 standard drink = 0.6 oz pur e alcohol) moderate Sex and Gender Information Value Date Recorded Sex Assigned at Not on file Legal Sex Male 2:13 PM EST Gender Identity Not on file Sexual Orientation Not on file Obstetrics History Last Filed Vital Signs Vital Sign Reading Time Taken Comments Blood Pressure 128/62 04/04/2025 9:53 AM EDT Pulse 51 04/04/2025 9:53 AM EDT Temperature - - Respiratory Rate - - Oxygen Saturation 92% 04/04/2025 9:53 AM EDT Inhaled Oxygen Concentration - - Weight 111 kg (244 lb) 04/04/2025 9:53 AM EDT Height 182.9 cm (6') 04/04/2025 9:53 AM EDT Body Mass Index 33.09 04/04/2025 9:53 AM EDT Plan of Treatment Upcoming Encounters Date Type Department Care Team (Late st Contact Info) Description 06/14/2025 9:00 AM EDT Ancillary Procedure [facility] - [address] [place] [address] Health Maintenance Due Date Last Done Comments DTaP,Tdap,and Td Vaccines (1 - Tdap) 01/13/1967 Zoster Vaccines (1 of 2) 01/13/1998 Cholesterol Screening (Lipid Panel) 09/06/2022 Falls Risk Assessment 09/06/2022 Hepatitis C Screening 09/06/2022 Medicare Annual Wellness Visit 09/06/2022 Social Influencers of Health Screening 09/06/2022 Hypertension/CHF/CAD Annual BMP Blood Test 09/07/2022 07/30/2021 RSV Immunization Adult Patients (1 - 1-dose 75+ series) 01/13/2023 COVID-19 Vaccine ( season) 2024 01/09/2021, 12/12/2020 Depression Screening 09/28/2024 Influenza Vaccine (#1) 2025 , 07/11/2022, 08/12/2018, Additional history exists Pneumococcal Vaccine: 50+ Years Completed 05/12/2023 HIB Vaccines Aged Out [...] patient's age to complete this topic Meningococcal B Vaccine Aged Out No l onger eligible based on patient's age to complete this topic RSV Immunization Patients Under 20 months Aged Out No longer eligible based on patient's age to complete this topic Varicella Vaccines Aged Out No longer eligible based on patient's age to complete this topic Medical Devices Implanted Type Area Director Of Psychology Device Identifier Shelf Expiration Date Model / Serial / Lot Cardiac Pacemaker-03/18 Implanted:02/27 by Nicole Montejo MD (Quantity not on file) Cardiac Pacemaker Left: Chest [employer] - CARDIAC RHYTH-CRDM / [id number] / Medt-Card Maddie Xt Dr Zhu [id number] Implanted:02/27 (Quantity not on file) Cardiac Pacemaker [employer] - CARDIAC RHYTH-CRDM MADDIE XT DR ZHU [id number] / [id number] / Medt-Card Morganza Xt Dr Zhu [id number] Implanted:02/27 (Quantity not on file) Cardiac Pacemaker [employer] - CARDIAC RHYTH-CRDM MADDIE XT DR ZHU / [id number] / Procedures Procedure Name Priority Date/Time Associated Diagnosis Comments CARDIAC DEVICE CHECK- REMOTE- MURJ Routine 04/18/2025 9:31 AM EDT ECG 12-LEAD Routine 04/04/2025 10:05 AM EDT Paroxysmal atrial fibrillation (CMS/HCC V24, CMS/HCC V28) Hyperlipidemia, unspecified hyperlipidemia type CARDIAC DEVICE CHECK- REMOTE- MURJ Routine 03/21/2025 10:12 AM EDT ECG 12-LEAD Routine 02/06/2025 9:18 AM EDT Paroxysmal atrial fibrillation (CMS/HCC V24, CMS/HCC V28) ANNUAL BMP BLOOD TEST Routine 07/30/2021 from Last 3 Months or Most Recently Relevant to Health Maintenance Results * Cardiac device check - Remote- MURJ (04/18/2025 9:31 AM EDT) Only the most recent of2 resultswithin the time period is included. Date Time Interrogation Session [id number] CV DEVICE CHECK Type Interrogation Session Remote CV DEVICE CHECK Implantable Pulse Generator Director Of Psychology MDT CV DEVICE CHECK Implantable Pulse Generator Type IPG CV DEVICE CHECK Implantable Pulse Generator Model Maddie XT DR MRI [id number] CV DEVICE CHECK Implantable Pulse Generator Serial Number [id number] CV DEVICE CHECK Implantable Pulse Generator Implant Date [id number] CV DEVICE CHECK Battery Remaining Longevity 96.0 CV DEVICE CHECK Battery Voltage 2.990 CV D EVICE CHECK Battery [employer] Trigger 2.625 CV DEVICE CHECK Battery Status Middle of Service CV DEVICE CHECK Dipak Statistic RA Percent Paced 51.54 CV DEVICE CHECK Dipak Statistic RV Percent Paced 98.45 CV DEVICE CHECK Atrial Tachy Statistic AT/AF [place] Percent 0.30 CV DEVICE CHECK Lead Channel Sensing Intrinsic Amplitude 0.625 CV DEVICE CHECK Lead Channel Setting Sensing Sensitivity 0.30 CV DEVICE CHECK Lead Channel Impedance Value 361 CV DEVICE CHECK Lead Channel Pacing Threshold Amplitude 0.625 CV DEVICE CHECK Lead Channel Pacing Threshold Pulse Width 0.4 CV DEVICE CHECK Lead Channel RA Pacing Threshold Date 2025-04-08 CV DEVICE CHECK Lead Channel Setting Pacing Amplitude 1.500 CV DEVICE CHECK Lead Channel Setting Pacing Pulse Width 0.4 CV DEVICE CHECK Lead Channel Sensing Intrinsic Amplitude 16.250 CV DEVICE CHECK Lead Channel Setting Sensing Sensitivity 0.90 CV DEVICE CHECK Lead Channel Impedance Value 456 CV DEVICE CHECK Lead Channel Pacing Threshold Amplitude 1.125 CV DEVICE CHECK Lead Channel Pacing Threshold Pulse Width 0.4 CV DEVICE CHECK Lead Channel RV Pacing Threshold Date 2025-04-12 CV DEVICE CHECK Lead Channel Setting Pacing Amplitude 2.250 CV DEVICE CHECK Lead Channel Setting Pacing [...] 6 CV DEVICE CHECK Date of Service 2025-06-27 CV DEVICE CHECK Anatomical Region Laterality Modality Device Interroga tion 04/12/2025 5:43 AM EDT Impressions 04/18/2025 9:29 AM EDT Atrial Fibrillation w/Controlled V Response * Stored EGMs are consistent with or suggestive of Atrial Fibrillation with Controlled Ventricular Response * AT/AF [place]: 0.3% * Total episodes: 1 * Longest episode: ongoing Additional Notes: Scheduled recheck 04/13/25 Narrative Procedure Note Felicita Trinidad PA - 04/18/2025 IMPRESSION: Atrial Fibrillation w/Controlled V Response * Stored EGMs are consistent with or suggestive of Atrial Fibrillationwith Controlled Ventricular Response * AT/AF [place]: 0.3% * Total episodes: 1 * Longest episode: ongoing Additional Notes: Scheduled recheck 04/13/25 Felicita MANZO CV IMPLANTABLE CARDIAC DEVICE VA OCEDURES Final Result * ECG 12 lead (04/04/2025 10:05 AM EDT) Only the most recent of2 resultswithin the time period is included. Ventricular Rate ECG 77 BPM GEMUSE Atrial Rate 77 BPM GEMUSE P-R Interval 174 ms GEMUSE QRS Duration 150 ms GEMUSE Q-T Interval 440 ms GEMUSE QTc 497 ms GEMUSE P Wave [place] 43 degrees GEMUSE R [place] 31 degrees GEMUSE T [place] -121 degrees GEMUSE ECG Interpretation AV dual-paced rhythm with frequent premature atrial complexes When compared with ECG of 06-FEB-2025 09:18, Vent. rate has increased BY 17 BPM Confirmed by LIZA MONTEJO ([id number]) on 04/05/2025 11:23:38 AM GEMUSE 04/04/2025 10:0 5 AM EDT 04/05/2025 11:23 AM EDT us Nicole Montejo MD ECG ORDERABLES Final Resu lt GEMUSE * Annual BMP Blood Test (07/30/2021) Annual BMP Blood Test abstracted us Historical Provider HEALTH MAINTENANCE Final Result from Last 3 Months or Most Recently Relevant to Health Maintenance Insurance MEDICARE [place] MED[place]ID ADVANTAGE Care Teams Principal Biostatistician Relationship Specialty Start Date End Date Easton Barclay MD [address] [place] [address] PCP - General Internal Medicine 12/27/24
[2025-05-05 12:53] LABS: PSA,Total (Free>4and<10) 7.46 ng/mL (0.00-4.00)
[2025-05-08 14:03] LABS: Free Prostate Spec Ag 0.9 ng/mL; Percent Free Prostate Spec Ag 13 % (calc) (>25)
== END 2025-05-05 11:48 | disposition home or self-care (01) ==
LOC: HO.LNP 11:47
PROVIDERS: Visit Provider Internal Medicine
DX: Z12.5 Encounter for screening for malignant neoplasm of prostate (principal); R97.20 Elevated prostate specific antigen [PSA]
CPT/HCPCS: 84153; 84154